=== PATIENT | male | born 1970 | race Caucasian/White ===

== ENCOUNTER 2016-07-19 22:18 | Emergency (ER) | payer OTHER | END 2016-07-20 00:50 | disposition home or self-care (01) | LOC: ER 22:18 | DX: R07.2 Precordial pain (principal); N28.9 Disorder of kidney and ureter, unspecified; R51 Headache; I10 Essential (primary) hypertension; F17.220 Nicotine dependence, chewing tobacco, uncomplicated; Z87.442 Personal history of urinary calculi; Z90.49 Acquired absence of other specified parts of digestive tract; Z88.0 Allergy status to penicillin; Z88.1 Allergy status to other antibiotic agents; Z88.5 Allergy status to narcotic agent | CPT/HCPCS: 36415; 96374; 96375; J1885 ==